=== PATIENT | female | born 2000 | race African-American/Black ===

== ENCOUNTER 2018-08-05 07:37 | Emergency (ER) | payer MEDICAID, OTHER ==
--- NOTE | 2018-08-05 08:21 | ER Document Report ---
ED General - General Chief Complaint: Chest Pain Stated Complaint: ABDOMINAL PAIN/BACK PAIN/DIZZINESS Time Seen by Provider: 08/05/18 08:21 Notes: Patient is a 17-year-old female that presents to the emergency department for chief complaint of epigastric abdominal pain and chest pain. Patient states she has been having symptoms on and off ever since her gallbladder was taken out several years ago, but seemingly was worse of the last few days so she decided come to the emergency department. She describes the pain as an aching and occasionally sharp sensation in the epigastric region of her abdomen, that will go up towards her chest, and toward her back at times. She currently rates the pain as a 2 out of 10, and mild compared to what it was yesterday. She did try taking Tums, without much relief of her symptoms. She had some nausea but denies any vomiting or diarrhea. She also denies noting any recent fevers, chills, night sweats, shortness of breath, difficulty breathing or palpitations. Patient also states she has been having dysuria, and suprapubic pain that started this morning as well. Past Medical History: Denies chronic medical problems Past Surgical History: Cholecystectomy Social History: Admits to occasional cigarette use, denies alcohol or drug use Family History: Reviewed and noncontributory for presenting illness Allergies: Reviewed, see documented allergy list. REVIEW OF SYSTEMS: Other than noted above, the 12 point review of systems was reviewed with the patient and were negative, all pertinent findings are included in the HPI. PHYSICAL EXAMINATION: Vital signs reviewed, nursing noted reviewed. GENERAL: Well-appearing, well-nourished and in no acute distress. HEAD: Atraumatic, normocephalic. EYES: Eyes appear normal, extraocular movements intact, sclera anicteric, conjunctiva are normal. ENT: nares patent, oropharynx clear without exudates. Moist mucous membranes. NECK: Normal range of motion, supple without lymphadenopathy LUNGS: Breath sounds clear to auscultation bilaterally and equal. No wheezes rales or rhonchi. HEART: Regular rate and rhythm without murmurs ABDOMEN: Soft, mild epigastric tenderness to palpation, as well as suprapubic tenderness with palpation, normoactive bowel sounds. No rebound, guarding, or rigidity. No masses appreciated. EXTREMITIES: Nontender, good range of motion, no pitting or edema. NEUROLOGICAL: No focal neurological deficits. Moves all extremities spontaneously Motor and sensory grossly intact on exam. PSYCH: Normal mood, normal affect. SKIN: Warm, Dry, normal turgor, no rashes or lesions noted on exposed skin TRAVEL OUTSIDE OF THE [place] IN LAST 30 DAYS: No - Related Data Allergies/Adverse Reactions: No Known Allergies Allergy (Verified 07/19/15 12:54) Past Medical History - Social History Smoking Status: Current Every Day Smoker Family History: Reviewed & Not Pertinent Skin Medical History: Denies Hx MRSA Psychiatric Medical History: Reports: Hx Anxiety, Hx Bipolar Disorder, Hx Depression Past Surgical History: Reports: Hx Cholecystectomy - Immunizations Immunizations up to date: Yes Hx Diphtheria, Pertussis, Tetanus Vaccination: Yes Physical Exam - Vital signs Vitals: Temp Pulse Resp BP Pulse Ox 98.5 F 93 H 16 122/66 98 08/05/18 07:55 08/05/18 07:55 08/05/18 07:55 08/05/18 07:55 08/05/18 07:55 Course - Re-evaluation Re-evalutation: Patient seen and examined vital signs reviewed. Laboratory data and imaging were ordered as appropriate for the patient's presenting symptoms and complaint, with consideration of any critical or life threatening conditions that may be associated with their obtained history and exam as noted above. Patient was treated with IV fluids, Pepcid, Zofran, and Pyridium Results were reviewed when available and demonstrated UA consistent with urinary tract infection, normal lipase, no leukocytosis, hCG negative The patient was re-evaluated and was improved, pain was resolved Evaluation was most consistent with GERD, versus gastritis, nonspecific epigastric pain, as well as UTI. Patient was advised to follow-up with gastroenterology, she is given a prescription for Keflex to take for the UTI, as well as Pepcid for her reflux type symptoms. Results were discussed with the patient at this point, after careful consideration I feel that that patient can be discharged from the emergency department, the patient was educated treatments and reasons to return to the emergency department based on their presumed diagnosis as noted above, they were advised to followup with a primary care physician in 2-3 days. Patient was agreeable to plan of care. *Note is created using voice recognition software and may contain spelling, syntax or grammatical errors. Laboratory 08/05/18 08/05/18 08/05/18 08:45 08:45 08:45 WBC 7.3 RBC 4.87 Hgb 14.4 Hct 42.1 MCV 87 MCH 29.6 MCHC 34.2 RDW 12.7 Plt Count 240 Seg Neutrophils % 68.4 Lymphocytes % 22.9 Monocytes % 7.3 Eosinophils % 0.9 Basophils % 0.5 Absolute Neutrophils 5.0 Absolute Lymphocytes 1.7 Absolute Monocytes 0.5 Absolute Eosinophils 0.1 Absolute Basophils 0.0 Sodium 140.6 Potassium 4.1 Chloride 103 Carbon Dioxide 26 Anion Gap 12 BUN 10 Creatinine 0.84 Est GFR ( Amer) > 60 Est GFR (Non-Af Amer) > 60 Glucose 90 Calcium 9.5 Total Bilirubin 0.3 Direct Bilirubin 0.1 Neonat Total Bilirubin Not Reportable Neonat Direct Bilirubin Not Reportable Neonat Indirect Bili Not Reportable AST 18 ALT 22 Alkaline Phosphatase 64 Total Protein 6.9 Albumin 4.1 Lipase 81.0 Urine Color YELLOW Urine Appearance SLIGHTLY-CLOUDY Urine pH 5.0 Ur Specific [place] 1.025 Urine Protein NEGATIVE Urine Glucose (UA) NEGATIVE Urine Ketones NEGATIVE Urine Blood NEGATIVE Urine Nitrite NEGATIVE Urine Bilirubin NEGATIVE Urine Urobilinogen NEGATIVE Ur Leukocyte Esterase NEGATIVE Urine WBC (Auto) 2 Urine RBC (Auto) 2 Urine Bacteria (Auto) 3+ Squamous Epi Cells Auto 4 Urine Mucus (Auto) RARE Urine Ascorbic Acid NEGATIVE Urine HCG, Qual NEGATIVE - Vital Signs Vital signs: Temp Pulse Resp BP Pulse Ox 98.4 F 86 16 113/68 100 08/05/18 10:47 08/05/18 10:47 08/05/18 07:55 08/05/18 10:47 08/05/18 10:47 - Laboratory Result Diagrams: 08/05/18 08:45 08/05/18 08:45 - EKG Interpretation by Me Additional EKG results interpreted by me: EKG demonstrates sinus rhythm with a ventricular rate of 82 bpm, normal axis, normal intervals, no evidence of acute ischemia on this EKG, she is compared with prior EKG from 09/16/2015, without significant change. Discharge - Discharge Clinical Impression: Abdominal pain Qualifiers: Abdominal location: epigastric Qualified Code(s): R10.13 - Epigastric pain UTI (urinary tract infection) Qualifiers: Urinary tract infection type: site unspecified Hematuria presence: without hematuria Qualified Code(s): N39.0 - Urinary tract infection, site not specified Condition: Stable Disposition: HOME, SELF-CARE Instructions: Abdominal Pain ([facility]), Urinary Tract Infection ([facility]) Additional Instructions: Please take all medications as prescribed, if you have worsening symptoms or they are not improving, please return to the emergency department for reevaluation. Prescriptions: Cephalexin Monohydrate [Keflex 500 mg Capsule] 500 mg PO BID 3 Days #6 capsule Famotidine [Pepcid 40 mg Tablet] 40 mg PO BID #60 tablet Forms: Parent Work Note Referrals: WOJCIECH SKINNER MD [PEDIATRICS] - Follow up in 3-5 days PETER JAMES MD [ACTIVE STAFF] - Follow up tomorrow (gastroenterology )
[2018-08-05] MEDS ORDERED: ONDANSETRON HCL INJ/PF 4 MG/2 ML SDV IV ONE (08:36)
[2018-08-05] MEDS ORDERED: PHENAZOPYRIDINE HCL 100 MG TABLET PO ONE (08:36)
[2018-08-05] MEDS ORDERED: FAMOTIDINE INJ/PF 20 MG/2 ML SDV IV ONE (08:36)
[2018-08-05] MEDS ORDERED: NORMAL SALINE 1000 ML 1,000 ML IV ONE (08:36)
[2018-08-05 09:35] LABS: ABSOLUTE EOSINOPHILS # (AUTO) 0.1 10^3/uL (0.0-0.6); ABSOLUTE LYMPHOCYTES (AUTO) 1.7 10^3/uL (0.5-4.7); ABSOLUTE MONOCYTES (AUTO) 0.5 10^3/uL (0.1-1.4); BASOPHILS % (AUTO) 0.5 % (0-2); EOSINOPHILS % (AUTO) 0.9 % (0-6); HEMATOCRIT 42.1 % (36.0-47.0); HEMOGLOBIN 14.4 g/dL (12.0-15.5); LYMPHOCYTES % (AUTO) 22.9 % (13-45); MEAN CORPUSCULAR HEMOGLOBIN 29.6 pg (27.0-33.4); MEAN CORPUSCULAR HGB CONC 34.2 g/dL (32.0-36.0); MEAN CORPUSCULAR VOLUME 87 fl (80-97); MONOCYTES % (AUTO) 7.3 % (3-13); PLATELET COUNT 240 10^3/uL (150-450); RED BLOOD COUNT 4.87 10^6/uL (3.72-5.28); RED CELL DISTRIBUTION WIDTH 12.7 % (11.5-14.0); SEGMENTED NEUTROPHILS % (AUTO) 68.4 % (42-78); TOTAL CELLS COUNTED % (AUTO) 100 %; WHITE BLOOD COUNT 7.3 10^3/uL (4.0-10.5)
[2018-08-05 09:47] LABS: ALANINE AMINOTRANSFERASE 22 U/L (5-35); ALBUMIN 4.1 g/dL (3.7-5.6); ALKALINE PHOSPHATASE 64 U/L (50-135); ANION GAP 12 (5-19); ASPARTATE AMINO TRANSFERASE 18 U/L (5-30); BILIRUBIN,DIRECT 0.1 mg/dL (0.0-0.4); BILIRUBIN,TOTAL 0.3 mg/dL (0.2-1.3); BLOOD UREA NITROGEN 10 mg/dL (7-20); CALCIUM 9.5 mg/dL (8.4-10.2); CARBON DIOXIDE 26 mmol/L (22-30); CHLORIDE 103 mmol/L (98-107); GLUCOSE 90 mg/dL (75-110); POTASSIUM 4.1 mmol/L (3.6-5.0); SODIUM 140.6 mmol/L (137-145); TOTAL PROTEIN 6.9 g/dL (6.3-8.2)
[2018-08-05 10:04] LABS: APPEARANCE,URINE SLIGHTLY-CLOUDY; BILIRUBIN,URINE NEGATIVE (NEGATIVE); COLOR,URINE YELLOW; GLUCOSE, URINE NEGATIVE (NEGATIVE); KETONES,URINE NEGATIVE (NEGATIVE); LEUKOCYTE ESTERASE,URINE NEGATIVE (NEGATIVE); NITRITE,URINE NEGATIVE (NEGATIVE); PROTEIN,URINE NEGATIVE (NEGATIVE); URINE SPECIFIC GRAVITY 1.025; UROBILINOGEN,URINE NEGATIVE mg/dL (<2.0)
[2018-08-05 10:49] VITALS: BP 113/68
--- NOTE | 2018-08-05 13:21 | EKG REPORT ---
SEVERITY:- NORMAL ECG - SINUS RHYTHM : Confirmed by: Lucien Garcia MD 05-Aug-2018 13:20:56
== END 2018-08-05 10:49 | disposition home or self-care (01) ==
LOC: ER 07:37
DX: R07.9 Chest pain, unspecified (principal); R10.9 Unspecified abdominal pain; M54.9 Dorsalgia, unspecified; R42 Dizziness and giddiness; R30.0 Dysuria; R10.30 Lower abdominal pain, unspecified; F17.210 Nicotine dependence, cigarettes, uncomplicated
CPT/HCPCS: 93005; 99285; 96361; 96374; 96375; 36415; 87086; 83690; 85025; 81025; 80053; 81001; 93010; J3490; J2405; J7030; S0028

== ENCOUNTER 2019-03-27 09:18 | Emergency (ER) | payer MEDICAID ==
[2019-03-27 09:23] VITALS: BP 129/78
[2019-03-27] MEDS ORDERED: ONDANSETRON HCL INJ/PF 4 MG/2 ML SDV IV ONE (09:59)
--- NOTE | 2019-03-27 09:59 | ER Document Report ---
ED Medical Screen (RME) - General Chief Complaint: Abdominal Pain Stated Complaint: ABOMINAL PAIN Time Seen by Provider: 03/27/19 09:49 Notes: 18-year-old female with no significant medical history and history of cholecystectomy at the age of 14 presents to the emergency department for acute abdominal pain since last night. She said her last meal she ate some spaghetti and shortly after started developing significant abdominal pain that was "across my whole belly that shot around to my back". She then vomited the contents of her dinner and had 4 episodes of diarrhea. She states that the pain is cramping and "it feels like someone is twisting and turning my guts" and is rated 5/5 on the pain scale. She states she does feel little bit better this morning but the pain is still significant. She does have a history of abdominal pain but it is never been this severe. She does also complain of lightheadedness and mild dizziness but no weakness. She denies any fevers or chills, denies headache, denies recent illness, denies any bloody vomitus or blood in her diarrhea, denies any urinary symptoms, denies any abnormal vaginal discharge. No other complaints TRAVEL OUTSIDE OF THE [place] IN LAST 30 DAYS: No - Related Data Allergies/Adverse Reactions: amoxicillin Allergy (Verified 03/27/19 09:19) latex Allergy (Verified 03/27/19 09:19) Past Medical History - Social History Chew tobacco use (# tins/day): No Frequency of alcohol use: Occasional Drug Abuse: None Renal/ Medical History: Denies: Hx Peritoneal Dialysis Skin Medical History: Denies Hx MRSA Psychiatric Medical History: Reports: Hx Anxiety, Hx Bipolar Disorder, Hx Depression Past Surgical History: Reports: Hx Cholecystectomy - Immunizations Immunizations up to date: Yes Hx Diphtheria, Pertussis, Tetanus Vaccination: Yes Physical Exam - Vital signs Vitals: Temp Pulse Resp BP Pulse Ox 98.7 F 86 16 129/78 H 100 03/27/19 09:23 03/27/19 09:23 03/27/19 09:23 03/27/19 09:23 03/27/19 09:23 - Notes Notes: PHYSICAL EXAMINATION: Reviewed vital signs and charting by RN GENERAL: Alert, interacts well. No acute distress. HEAD: Normocephalic, atraumatic. EYES: Pupils equal and round. Extraocular movements intact. ENT: Oral mucosa moist, tongue midline. NECK: Full range of motion. Trachea midline. LUNGS: Clear to auscultation bilaterally, no wheezes, rales, or rhonchi. No re spiratory distress. HEART: Regular rate and rhythm. No murmur ABDOMEN: Exam limited in triage but abdomen is soft, tenderness to palpation in the epigastric area. No distention. Bowel sounds present EXTREMITIES: Moves all 4 extremities spontaneously. No edema, No cyanosis. PSYCH: Normal affect, normal mood. SKIN: Warm, dry, normal turgor. No rashes or lesions noted. Course - Vital Signs Vital signs: Temp Pulse Resp BP Pulse Ox 98.7 F 86 16 129/78 H 100 03/27/19 09:23 03/27/19 09:23 03/27/19 09:23 03/27/19 09:23 03/27/19 09:23
[2019-03-27] MEDS ORDERED: NORMAL SALINE 1000 ML 1,000 ML IV ONE (10:00)
--- NOTE | 2019-03-27 10:16 | ER Document Report ---
HPI - HPI Patient complains to provider of: epigastric abdominal pain, vomiting, diarrhea Time Seen by Provider: 03/27/19 09:49 Onset/Duration: Gradual Quality of pain: Burning Pain Level: 2 Context: 18 Yr old female patient, with the listed pmh, here for epigastric abdominal pain, a few episodes of nonbloody nonbilious vomiting, and nonbloody diarrhea since last night. No abdominal surgeries other than a lap heather 4 yrs ago. No history of ovarian cysts, fibroids, endometriosis, or renal stones. No UTI symptoms. No URI symptoms. No recent antibiotics or steroids. No history of diabetes or asthma. No vaginal discharge/complaints/lesions or concerns for STDs and does not want a pelvic exam. No ripping or tearing sensation. Hasn't taken anything for her symptoms. No excessive NSAID use, Tylenol use, or EtOH. No prior history of pancreatitis, ulcers, GI bleed, GERD, IBS, Crohn's, or UC. no change in color or caliber or stool. no blood thinners. no fall or trauma. no other associated sx. - REPRODUCTIVE Reproductive: DENIES: : - DERM Skin Color: Normal Past Medical History - Social History Smoking Status: Current Every Day Smoker Chew tobacco use (# tins/day): No Frequency of alcohol use: Occasional Drug Abuse: None Family History: Reviewed & Not Pertinent Patient has suicidal ideation: No Patient has homicidal ideation: No Renal/ Medical History: Denies: Hx Peritoneal Dialysis Skin Medical History: Denies Hx MRSA Psychiatric Medical History: Reports: Hx Anxiety, Hx Bipolar Disorder, Hx Depression Past Surgical History: Reports: Hx Cholecystectomy - Immunizations Immunizations up to date: Yes Hx Diphtheria, Pertussis, Tetanus Vaccination: Yes Vertical Provider Document - CONSTITUTIONAL Notes: >>>> PHYSICAL_EXAM: GENERAL_APPEARANCE: well_nourished, alert, cooperative, no_acute_distress, no_obvious_discomfort. Pleasant, obese young black, female, playing on her phone, laughing and joking around with another female in the room, smiling, speaking in full sentences, in no sign of pain or resp distress, easily sitting up VITALS: reviewed, see vital signs table. HEAD: normocephalic, atraumatic. no ravi signs. no raccoon eyes. EYES: PERRL, EOMI, (-)scleral icterus. NOSE: no_nasal_discharge. MOUTH: (-)decreased moisture. THROAT: no_tonsilar_inflammation/hypertrophy/exudate NECK: supple, no_neck_tenderness, full rom. full strength. no meningeal signs. no sign of central cord syndrome BACK: no midline_back_tenderness. no step offs or deformities CHEST_WALL: no_chest_tenderness. LUNGS: no_wheezing, (-)accessory muscle use, good air exchange bilateral. HEART: normal_rate, normal_rhythm, ABDOMEN: normal_BS, soft, abdomen-diffuse, mildly ttp in the epigastrium, (- )guarding, (-)rebound, no distension or peritoneal signs. neg murphys. neg mcburneys. no cva tenderness. neg heel sitrke. neg obturator. neg psoas. neg rovsign. PELVIC: deferred by pt EXTREMITIES: strength 5/5 in all_extremities, good pulses in all_extremities, no_edema, no_swelling\tenderness. full rom. normal gait. good hand regulatory scientist. brisk cap refill. neg mulugeta sign SKIN: warm, dry, good_color, no_rash. no grossly visible overlying skin changes to suggest trauma NEURO: motor_intact, sensory_intact. cranial nerves 2-12 intact, cerebellar fxn intact MENTAL_STATUS: normal_affect, speech_clear, oriented_X_3, re sponds_appropriately to questions. - INFECTION CONTROL TRAVEL OUTSIDE OF THE [place] IN LAST 30 DAYS: No Course - Re-evaluation Re-evalutation: pt here for epigastric gi sx. differential includes gerd, gastritis ulcer, h. pylori etc. no cp or sob. she improved with tx here. tolerating po. serial abd exams benign. advised sx care. lab unremarkable. she is already on prilosec. advised she can cont this and will dc with zantac, zofan, and sucrafate. advised to stick to a bland diet this time. avoid known worsening exposures. advised to f/u with pcp/gi in 1-2 days. return for any worsening symptoms. vss. well appearing. satting well on ra. neurononfocal. pt understands and agrees to plan. On reexam, pt improved with tx listed. remained stable. nontoxic. well appearing. pain controlled. tolerating po. requesting to go home. serial abd exams remain benign. case discussed with ER Attending, Dr. flowers, who directed and agrees with plan of care and advised no further workup indicated at this time and pt is stable for dc home with close f/u with pcp/specialist. Documentation achieved through voice recording which my lead to some occasional accidental typographical errors. Extensive efforts have been made to proof read documentation to make sure these are the least as possible. Category Date Time Status Lock [Saline Lock (ED)] NOW Care 03/27/19 09:59 Completed CBC WITH DIFF [HEME] Stat Lab 03/27/19 10:25 Completed COMPREHENSIVE METABOLIC PANEL [CHEM] Stat Lab 03/27/19 10:25 Completed LIPASE [CHEM] Stat Lab 03/27/19 10:25 Completed URINALYSIS [URIN] Stat Lab 03/27/19 11:09 Completed Urine [HCG QUALITATIVE, URINE] [URIN] Stat Lab 03/27/19 11:09 Completed Lidocaine HCl [Xylocaine 2% Viscous Soln 20 ml Udcup] Med 03/27/19 11:08 Discontinued 15 ml PO NOW ONE Mag Hydrox/Al Hydrox/Simeth [Maalox Plus Susp 30 Udcup] Med 03/27/19 11:08 Discontinued 30 ml PO NOW ONE Normal Saline 1000 ml [NaCl 0.9% 1000 ml IV Soln] 1,000 Med 03/27/19 10:00 Discontinued ml IV BOLUS Ondansetron HCl/Pf [Zofran Inj/Pf 4 mg/2 ml Sdv] Med 03/27/19 09:59 Discontinued 4 mg IV NOW ONE - Vital Signs Vital signs: Temp Pulse Resp BP Pulse Ox 98.7 F 86 16 129/78 H 100 03/27/19 09:23 03/27/19 09:23 03/27/19 09:23 03/27/19 09:23 03/27/19 09:23 - Laboratory Result Diagrams: 03/27/19 10:25 03/27/19 10:25 Laboratory results interpreted by me: Labs- Entire Visit 03/27/19 03/27/19 03/27/19 10:25 10:25 11:09 WBC 6.9 RBC 4.69 Hgb 14.3 Hct 41.7 MCV 89 MCH 30.5 MCHC 34.3 RDW 13.6 Plt Count 252 Seg Neutrophils % 69.6 Lymphocytes % 20.9 Monocytes % 7.3 Eosinophils % 1.9 Basophils % 0.3 Absolute Neutrophils 4.8 Absolute Lymphocytes 1.4 Absolute Monocytes 0.5 Absolute Eosinophils 0.1 Absolute Basophils 0.0 Sodium 139.1 Potassium 4.1 Chloride 107 Carbon Dioxide 26 Anion Gap 6 BUN 9 Creatinine 0.77 Est GFR ( Amer) > 60 Est GFR (Non-Af Amer) > 60 Glucose 84 Calcium 9.2 Total Bilirubin 0.9 Direct Bilirubin 0.3 Neonat Total Bilirubin Not Reportable Neonat Direct Bilirubin Not Reportable Neonat Indirect Bili Not Reportable AST 27 ALT 24 Alkaline Phosphatase 43 Total Protein 6.5 Albumin 3.8 Lipase 69.4 Urine Color YELLOW Urine Appearance SLIGHTLY-CLOUDY Urine pH 6.0 Ur Specific [place] 1.018 Urine Protein NEGATIVE Urine Glucose (UA) NEGATIVE Urine Ketones NEGATIVE Urine Blood NEGATIVE Urine Nitrite NEGATIVE Urine Bilirubin NEGATIVE Urine Urobilinogen NEGATIVE Ur Leukocyte Esterase NEGATIVE Urine WBC (Auto) 2 Urine RBC (Auto) 1 Urine Bacteria (Auto) 3+ Squamous Epi Cells Auto 2 Urine Mucus (Auto) OCC Urine Ascorbic Acid NEGATIVE Urine HCG, Qual NEGATIVE Discharge - Discharge Clinical Impression: Epigastric abdominal pain, Vomiting and diarrhea GERD (gastroesophageal reflux disease) Qualifiers: Esophagitis presence: esophagitis presence not specified Qualified Code(s): K21.9 - Gastro-esophageal reflux disease without esophagitis Condition: Stable Disposition: HOME, SELF-CARE Instructions: Abdominal Pain ([facility]) Additional Instructions: Follow-up with PCP/GI in 1-2 days for recheck. You may need to be tested for H. pylori or have an endoscopy done. Avoid fried, spicy, fatty foods along with alcohol and NSAIDs as discussed. you can continue to take your Prilosec. Drink plenty of fluids. [place] diet. Return for any worsening, new or concerning symptoms. Tylenol as needed for any pain as well Prescriptions: Ondansetron [Zofran Odt 4 mg Tablet] 1 tab PO Q8 PRN #15 tab.rapdis PRN Reason: For Nausea/Vomiting Ranitidine HCl [Zantac] 150 mg PO BID 30 Days #60 tablet Sucralfate [Carafate 1 gm Tablet] 1 gm PO QID 30 Days #120 tablet Forms: Return to Work
[2019-03-27 10:49] LABS: ABSOLUTE EOSINOPHILS # (AUTO) 0.1 10^3/uL (0.0-0.6); ABSOLUTE LYMPHOCYTES (AUTO) 1.4 10^3/uL (0.5-4.7); ABSOLUTE MONOCYTES (AUTO) 0.5 10^3/uL (0.1-1.4); ABSOLUTE NEUT (AUTO) 4.8 10^3/uL (1.7-8.2); BASOPHILS % (AUTO) 0.3 % (0-2); EOSINOPHILS % (AUTO) 1.9 % (0-6); HEMATOCRIT 41.7 % (36.0-47.0); HEMOGLOBIN 14.3 g/dL (12.0-15.5); LYMPHOCYTES % (AUTO) 20.9 % (13-45); MEAN CORPUSCULAR HEMOGLOBIN 30.5 pg (27.0-33.4); MEAN CORPUSCULAR HGB CONC 34.3 g/dL (32.0-36.0); MEAN CORPUSCULAR VOLUME 89 fl (80-97); MONOCYTES % (AUTO) 7.3 % (3-13); PLATELET COUNT 252 10^3/uL (150-450); RED BLOOD COUNT 4.69 10^6/uL (3.72-5.28); RED CELL DISTRIBUTION WIDTH 13.6 % (11.5-14.0); SEGMENTED NEUTROPHILS % (AUTO) 69.6 % (42-78); TOTAL CELLS COUNTED % (AUTO) 100 %; WHITE BLOOD COUNT 6.9 10^3/uL (4.0-10.5)
[2019-03-27 11:03] LABS: ALANINE AMINOTRANSFERASE 24 U/L (9-52); ALBUMIN 3.8 g/dL (3.5-5.0); ALKALINE PHOSPHATASE 43 U/L (38-126); ANION GAP 6 (5-19); ASPARTATE AMINO TRANSFERASE 27 U/L (14-36); BILIRUBIN,DIRECT 0.3 mg/dL (0.0-0.4); BILIRUBIN,TOTAL 0.9 mg/dL (0.2-1.3); BLOOD UREA NITROGEN 9 mg/dL (7-20); CALCIUM 9.2 mg/dL (8.4-10.2); CARBON DIOXIDE 26 mmol/L (22-30); CHLORIDE 107 mmol/L (98-107); GLUCOSE 84 mg/dL (75-110); POTASSIUM 4.1 mmol/L (3.6-5.0); TOTAL PROTEIN 6.5 g/dL (6.3-8.2)
[2019-03-27] MEDS ORDERED: MAG HYDROX/AL HYDROX/SIMETH SUSP 30 ML UDCUP PO ONE (11:08)
[2019-03-27] MEDS ORDERED: LIDOCAINE 2% VISCOUS SOLN 20 ML UDCUP PO ONE (11:08)
[2019-03-27 11:33] LABS: APPEARANCE,URINE SLIGHTLY-CLOUDY; BILIRUBIN,URINE NEGATIVE (NEGATIVE); COLOR,URINE YELLOW; GLUCOSE, URINE NEGATIVE (NEGATIVE); KETONES,URINE NEGATIVE (NEGATIVE); LEUKOCYTE ESTERASE,URINE NEGATIVE (NEGATIVE); NITRITE,URINE NEGATIVE (NEGATIVE); PROTEIN,URINE NEGATIVE (NEGATIVE); URINE SPECIFIC GRAVITY 1.018; UROBILINOGEN,URINE NEGATIVE mg/dL (<2.0)
== END 2019-03-27 14:29 | disposition home or self-care (01) ==
LOC: ER 09:18
DX: K21.9 Gastro-esophageal reflux disease without esophagitis (principal); R10.13 Epigastric pain; R10.816 Epigastric abdominal tenderness; R19.7 Diarrhea, unspecified; R11.10 Vomiting, unspecified; E66.9 Obesity, unspecified; F17.200 Nicotine dependence, unspecified, uncomplicated; Z90.49 Acquired absence of other specified parts of digestive tract
CPT/HCPCS: 99284; 96361; 96374; 36415; 83690; 85025; 81025; 80053; 81001; J3490 ×2; J2405; J7030